=== PATIENT | male | born 1960 | race Caucasian/White ===

== ENCOUNTER → 2016-11-04 | Outpatient (CLI) | payer BC ==
[~2016-11-04] MED LIST: ASPCH81X PO; AZIT500T3 PO; LORA-741 PO; MOME100A INH; OMEGCAP2 PO; PRED20TA2 PO; RANI300T2 PO
[2016-11-04 10:15] LABS: CHOLESTEROL/HDL RATIO 2.7
== END | disposition home or self-care (01) ==
LOC: C.LAB 08:28
DX: E78.5 Hyperlipidemia, unspecified (principal)

== ENCOUNTER → 2017-02-18 | Outpatient (CLI) | payer BC ==
--- NOTE | 2017-02-18 13:04 | DIAGNOSTIC IMAGING REPORT ---
CHEST 2 VIEWS ROUTINE CLINICAL HISTORY: 57 years-old Male presenting with PALPITATIONS. TECHNIQUE: PA and lateral views of the chest were obtained. COMPARISON: 06/09/2013. FINDINGS: Cardiomediastinal silhouette normal. Lungs and pleural spaces clear. Osseous structures normal. Upper abdomen normal. IMPRESSION: 1. No acute cardiopulmonary disease. Electronically signed by: Edward Zambrano M.D. 02/18/2017 1:03 PM Dictated Date/Time: 02/18/2017 1:02 PM
== END | disposition home or self-care (01) ==
LOC: C.RAD 12:19
DX: R00.2 Palpitations (principal)